=== PATIENT | female | born 1985 | race Caucasian/White ===

== ENCOUNTER 2018-09-27 23:15 | Emergency (ER) | payer SELFPAY ==
[2018-09-27] MEDS ORDERED: Diazepam 5 MG TAB ONE (23:54)
[2018-09-27] MEDS ORDERED: Ketorolac Tromethamine 30 MG/ML VIAL ONE (23:55)
[2018-09-27] MEDS ORDERED: Acetaminophen 500 MG TAB ONE (23:55)
--- NOTE | 2018-09-28 09:16 | RAD ---
LUMBAR SPINE 3 VIEWS: HISTORY: Back pain. FINDINGS: Lumbar vertebrae maintain normal height and alignment. Disk spaces are maintained. No evidence of s pondylolisthesis or spondylolysis. IMPRESSION: Unremarkable lumbar spine. POS: OFF
== END 2018-09-28 00:49 | disposition home or self-care (01) ==
LOC: ERS 23:15
DX: S39.012A Strain of muscle, fascia and tendon of lower back, initial encounter (principal); X50.9XXA Other and unspecified overexertion or strenuous movements or postures, initial encounter
CPT/HCPCS: 72100; 96372; J1885

== ENCOUNTER 2019-01-19 13:35 | Outpatient (CLI) | payer OTHER ==
--- NOTE | 2019-01-19 14:33 | MRI ---
MRI lumbar spine: 01/19/2019 COMPARISON: None HISTORY: Lower right-sided back pain with right lower extremity radiculopathy TECHNIQUE: Multiplanar multisequence MR imaging of the lumbar spine without contrast FINDINGS: On the basis of 5 lumbar type vertebral bodies, the conus medullaris terminates at the T12- L1 level. The sagittal STIR imaging demonstrates no focal area of osseous marrow edema. T12-L1: No central canal or neural foraminal stenosis L1-2: No central canal or neural foraminal stenosis L2-3: No central canal or neural foraminal stenosis L3-4: No central canal or neural foraminal stenosis L4-5: Mild bilateral facet hypertrophy. Disc desiccation noted. No significant central canal or neura l foraminal stenosis. L5-S1: No central canal or neural foraminal stenosis. The visualized retroperitoneal structures demonstrate no acute findings. IMPRESSION: No significant central canal or neural foraminal stenosis within the lumbar spine.
== END 2019-01-19 13:36 | disposition home or self-care (01) ==
LOC: BICMRI 13:35
PROVIDERS: ATTEND Family Medicine
DX: S39.012D Strain of muscle, fascia and tendon of lower back, subsequent encounter (principal)
CPT/HCPCS: 72148

== ENCOUNTER 2020-02-24 07:55 | Outpatient (CLI) | payer OTHER ==
[2020-02-24 15:55] LABS: BHCG - Serum Negative (NEGATIVE); Pregs Control Background? CLEAR/WHITE (CLR/WHITE); Pregs Control Bar Appear? YES (CONTROL BAR)
[2020-02-24 15:56] LABS: Hemoglobin 13.9 g/dL (12.0-16.0); Mean Corpuscular HGB CONC 33.6 g/dL (32.0-36.0); Mean Corpuscular Volume 89.2 fL (78.0-98.0); Mean Platelet Volume 7.4 fL (7.4-10.4); Platelet Count 366 thou/uL (130-400); RBC Distribution Width 11.5 % (11.5-14.5); Red Blood Cell (RBC) Count 4.63 mill/uL (4.20-5.40); White Blood Cell (WBC) Count 9.1 thou/uL (4.8-10.8)
[2020-02-25 12:49] LABS: SARS-CoV-2 MS2 Positive; SARS-CoV-2 N Gene Negative; SARS-CoV-2 S Gene Negative; SARS-CoV-2 by NAA Not Detected (NotDetected); SARS-CoV-2 orf1ab Negative
== END 2020-02-24 07:56 | disposition home or self-care (01) ==
LOC: LABBT 07:55
PROVIDERS: ATTEND Obstetrics & Gynecology
DX: Z01.812 Encounter for preprocedural laboratory examination (principal); N92.1 Excessive and frequent menstruation with irregular cycle; N94.6 Dysmenorrhea, unspecified; Z20.828 Contact with and (suspected) exposure to other viral communicable diseases
CPT/HCPCS: 84703; 85027; 86850; 86900; 86901; 87635; U0003

== ENCOUNTER 2020-02-29 07:56 | Day surgery (SDC) | payer OTHER ==
[2020-02-25 15:20] VITALS: BMI 37.4
--- NOTE | 2020-02-26 15:24 | HP ---
HISTORY OF PRESENT ILLNESS: Ms. Schneider is a 34-year-old white female G3, P3, with previous tubal ligation, is having increasingly heavy and painful periods over the last several years. She has tried nonsteroidals such as ibuprofen and also has tried some Lysteda with minimal improvement of her symptoms. She also has migraines, which exacerbate when she is on her menstrual cycle. She underwent a pelvic ultrasound for the heavy bleeding in my office in January 2020 showing the uterus appeared normal with 8.8 x 5 x 5 cm with the endometrial lining of 13 mm. Both ovaries were normal in appearance. She also has irregular bleeding at times every 2 weeks and prolonged for 8 to 10 days and therefore endometrial biopsy was obtained, which showed weakly proliferative findings and was benign for malignancy or hyperplasia. Her Pap smear and HPV were also negative. She has exhausted routine medical therapy and desires definitive surgical therapy. Past surgical therapy was removal of a neck cyst along with a tubal ligation in 2007. PAST MEDICAL HISTORY: Migraine and chronic hypertension. FAMILY HISTORY: Noncontributory. CURRENT MEDICATIONS: 1. Spironolactone 50 mg daily. 2. Bisoprolol/hydrochlorothiazide 2.5/6.25 mg daily for hypertension. 3. She uses Nurtec ODT 75 mg oral disintegrating tablet as needed for migraines. PHYSICAL EXAMINATION: VITAL SIGNS: Her height is 5 feet and 1 inch, weight is 202 with a BMI of 38. Blood pressure 126/70, pulse 86, respiratory rate 18, and O2 saturation 97% on room air. HEENT: Within normal limits. CHEST: Clear to auscultation. HEART: Regular rate and rhythm. S1 and S2 heart sounds. No murmurs, rubs, or gallops. ABDOMEN: Soft, nontender, and nondistended with no palpable masses. PELVIC: Vulva and vagina had no lesions. Cervix had no lesions. Uterus was small and nontender and it sounded to 7 cm on . Adnexa nontender with no masses. ASSESSMENT: This is a 34-year-old white female G3, P3 with tubal ligation with continued menometrorrhagia and severe dysmenorrhea and pelvic pain. Desires definitive surgical therapy. PLAN: For robotic TLH with bilateral salpingectomy on 02/29/2020. Risks and benefits of procedure have been discussed in detail, she is set for surgery. Job ID: [id number]
[2020-02-29] MEDS ORDERED: Bupivacaine HCl 0.5%/Epinephrine 1:200,000/PF 30 ml Vial ONE (09:47)
[2020-02-29] MEDS ORDERED: Fentanyl 250 MCG/5 ML VIAL ONE (09:48)
[2020-02-29] MEDS ORDERED: Gabapentin 300 MG CAP ONE (10:02)
[2020-02-29] MEDS ORDERED: Famotidine 20 MG TAB ONE ×2 (10:03→10:10)
[2020-02-29] MEDS ORDERED: CeleCOXIB 100 MG CAP ONE (10:04)
[2020-02-29] MEDS ORDERED: Albuterol Sulfate HFA (OR ONLY) ONE ×2 (10:52→13:19)
[2020-02-29] MEDS ORDERED: traMADol HCl 50 MG TAB PO PRN ×2 (11:47)
[2020-02-29] MEDS ORDERED: Promethazine HCl 25 MG/ML VIAL IM PRN ×2 (11:47→11:50)
[2020-02-29] MEDS ORDERED: Ondansetron PF 4 MG/2 ML Vial IVP PRN (11:47)
[2020-02-29] MEDS ORDERED: Acetaminophen 325 MG TAB PO PRN (11:47)
[2020-02-29] MEDS ORDERED: Zolpidem Tartrate 5 MG TAB PO PRN (11:47)
[2020-02-29] MEDS ORDERED: diphenhydrAMINE 25 MG CAP PO PRN (11:47)
[2020-02-29] MEDS ORDERED: Bisacodyl 10 MG SUPP PR PRN (11:47)
[2020-02-29] MEDS ORDERED: Simethicone Chewable 80 MG TAB PO PRN (11:47)
[2020-02-29] MEDS ORDERED: Morphine 4 MG/ML VIAL SLOW IVP PRN (11:47)
[2020-02-29] MEDS ORDERED: Ondansetron HCl/PF 4 MG/2 ML Vial IVP PRN (11:50)
[2020-02-29] MEDS ORDERED: Meperidine HCl/PF 25 MG/ML VIAL SLOW IVP PRN (11:50)
[2020-02-29] MEDS ORDERED: Promethazine HCl 25 MG/ML VIAL SLOW IVP PRN (11:50)
[2020-02-29] MEDS ORDERED: Ketorolac Tromethamine 30 MG/ML VIAL IVP SCH (12:00)
[2020-02-29] MEDS ORDERED: SUGAMMADEX SODIUM 200 MG/2 ML VIAL ONE (12:13)
[2020-02-29] MEDS ORDERED: Fentanyl 100 MCG/2 ML VIAL ONE (12:33)
--- NOTE | 2020-02-29 12:51 | OP ---
DATE OF PROCEDURE: 02/29/2020 PREOPERATIVE DIAGNOSES: 1. A 34-year-old white female, G2, P2, prior tubal ligation with severe dysmenorrhea and menorrhagia, unresponsive to medical management. 2. Suspect adenomyosis. POSTOPERATIVE DIAGNOSES: 1. A 34-year-old white female, G2, P2, prior tubal ligation with severe dysmenorrhea and menorrhagia, unresponsive to medical management. 2. Suspect adenomyosis. PROCEDURES PERFORMED: Robotic total laparoscopic hysterectomy, bilateral salpingectomy. ASSISTANCE SURGEON: BEST Gonzalez. ANESTHESIA: General endotracheal. ESTIMATED BLOOD LOSS: 25 mL. COMPLICATIONS: None. COUNTS: Correct x2. ANTIBIOTICS: 2 g Ancef on-call to OR with ERAS protocol. PATHOLOGY: Uterus, cervix, and bilateral tubes. FINDINGS: 1. Normal-appearing bilateral ovaries. 2. Fallopian tubes status post Filshie clip application. 3. Globularly enlarged boggy uterus, consistent with adenomyosis. 4. Clear urine present in Nogueira catheter postprocedure and bladder was watertight to water distention greater than 300 mL postprocedure. DISPOSITION: Recovery room, stable. DESCRIPTION OF PROCEDURE: The patient was taken back to the operating room after she had given informed consent in regard to surgery. She was taken back and placed in a dorsal lithotomy position after anesthesia was induced. She was prepped and draped in usual sterile fashion and Nogueira catheter had been placed. At this time, a side-arm speculum was placed in the vagina. Anterior lip of the cervix was grasped with single-tooth tenaculum. The uterus sounded to 9 cm and a size 8 cm TIMOTHY uterine manipulator with a 4.0 cm cervical cup was placed in usual fashion. Tenaculum and speculum were then removed. Attention was then turned to the abdomen, where perspective trocar sites were infiltrated with 0.5% Marcaine with epinephrine. A 12 mm supraumbilical incision was made. Veress needle was entered into the abdomen with the patient pressure noted to be less than 5 mm. Abdomen was insufflated for the patient pressure of 15 with approximately 5 L of carbon dioxide gas. Veress needle was then removed. A 12 mm trocar was then placed through the umbilical incision and laparoscope was introduced through the trocar sleeve. Proper entry was confirmed. Additional bilateral lower quadrant 8 mm trocars under laparoscopic guidance were placed along with the right upper quadrant 11 mm benefits assistant port. The patient was placed in Trendelenburg and the robot was docked in usual fashion. I broke scrub and then proceeded to carry out the surgery from the operative console while my benefits assistant remained at the bedside. The uterus was elevated from the pelvis with the previously mentioned findings. Each fallopian tube was identified. The left fallopian tube was grasped by my benefits assistant. Bipolar fenestrated cautery was utilized to coagulate the mesosalpinx and monopolar scissors were used to remove the left fallopian tube. This was brought up through the right upper quadrant benefits assistant port. The left utero-ovarian ligaments were then coagulated, transected, and serial coagulation of broad ligament hugging close to the uterus was carried out until the left round ligament was reached. It was coagulated and transected and the anterior leaf of the broad ligament was entered, dissecting the vesicouterine peritoneum in a layering technique. The left uterine vessels were then skeletonized. They were coagulated in the internal cervical os region with bipolar fenestrated cautery. This was carried out in similar fashion on the right side. Again, the right fallopian tube being coagulating and removed. The right utero-ovarian ligament being coagulated and transected, and serial coagulation of the broad ligament was carried out with transection down to the right round ligament, which was coagulated and transected. Anterior leaf of the broad ligament was again entered and the vesicouterine peritoneal dissection was completed. The uterine vessels were skeletonized and coagulated in the internal cervical os region. The bladder was distended to confirm its presence and further skeletonization of the cervical stump was carried out. The anterior colpotomy was then started and completed from 12 to 3 and 12 to 6 o'clock position, completing it from the 6 to 9 and 6 to 3 o'clock position. The specimen was then brought into the vaginal vault. Monopolar scissor was exchanged for a Sam needle mixer driver, then coagulated the vaginal cuff of any areas of bleeding with bipolar fenestrated cautery. Once this was secured, the Stratafix suture was brought into the field by my benefits assistant and I closed the vaginal cuff starting from the right angle towards the left angle back towards the midline through full-thickness closure of the vaginal cuff. Hemostasis was noted. The pelvis again was irrigated and suctioned. All the pedicle sites were noted to be hemostatic. The bladder was draining clear urine and the bladder was distended and noted to be watertight. Bilateral ureteral peristalsis was visualized and path of the ureters appeared to be inferior to the operative sites. The robot was undocked. Trocars were removed. The deep stitch of 0 Vicryl was placed in the umbilical fascial defect in [id number] stitch fashion. Remainder of the trocar sites were closed with 4-0 Monocryl with Dermabond. The vaginal cuff was inspected and noted to be hemostatic with the sponge stick. The patient was awakened from anesthesia and transferred to recovery room in stable condition. Job ID: [id number]
[2020-02-29] MEDS ORDERED: Promethazine HCl 25 MG/ML VIAL ONE (13:06)
[2020-02-29] MEDS ORDERED: Lidocaine 1% PF 5 ML VIAL ONE (13:19)
[2020-02-29] MEDS ORDERED: Ondansetron PF 4 MG/2 ML Vial ONE (13:19)
[2020-02-29] MEDS ORDERED: Rocuronium Bromide 10 MG/ML (10ML VIAL) ONE (13:19)
[2020-02-29] MEDS ORDERED: PROPOFOL 200 MG/20 ML VIAL ONE (13:19)
[2020-02-29] MEDS ORDERED: Glycopyrrolate 0.2 MG/ML 5 ML SYRINGE ONE (13:19)
[2020-02-29] MEDS ORDERED: Dexamethasone 20 MG/5 ML VIAL ONE (13:19)
[2020-02-29] MEDS: Lactated Ringer's 1,000 ML IV SCH ×2 (14:31→17:39)
[2020-02-29] MEDS ORDERED: Sodium Chloride 0.9% 10 ML ONE (16:40)
[2020-02-29] MEDS: Ketorolac Tromethamine 30 MG/ML VIAL IVP SCH (21:30)
[2020-03-01] MEDS: Ketorolac Tromethamine 30 MG/ML VIAL IVP SCH (04:03)
[2020-03-01] MEDS: Lactated Ringer's 1,000 ML IV SCH (04:11)
[2020-03-01 06:07] LABS: Hemoglobin 11.3 g/dL (12.0-16.0); Mean Corpuscular HGB CONC 34.1 g/dL (32.0-36.0); Mean Corpuscular Hemoglobin 30.3 pg (27.0-31.0); Mean Corpuscular Volume 88.9 fL (78.0-98.0); Mean Platelet Volume 7.1 fL (7.4-10.4); Platelet Count 340 thou/uL (130-400); RBC Distribution Width 11.3 % (11.5-14.5); Red Blood Cell (RBC) Count 3.72 mill/uL (4.20-5.40)
[2020-03-01 08:11] VITALS: BP 117/71; TEMP 98.2
[2020-03-05] MEDS ORDERED: Ibuprofen 800 MG TAB PO SCH (21:00)
== END 2020-03-01 09:10 | disposition home or self-care (01) ==
LOC: SDC 07:56 → 3SE 15:33 → SDC 03-01 09:10
PROVIDERS: ATTEND Obstetrics & Gynecology
PROC: 0UT74ZZ Resection of Bilateral Fallopian Tubes, Percutaneous Endoscopic Approach (ICD-10-PCS; principal; 2020-02-29)
PROC: 0UT94ZZ Resection of Uterus, Percutaneous Endoscopic Approach (ICD-10-PCS; principal; 2020-02-29)
DX: D25.2 Subserosal leiomyoma of uterus (principal); I10 Essential (primary) hypertension; G43.909 Migraine, unspecified, not intractable, without status migrainosus; Z79.899 Other long term (current) drug therapy; Z88.5 Allergy status to narcotic agent
CPT/HCPCS: 36415; 85027; 88307; J0690; J1100; J1885; J2270; J2405; J2550; J2704; J3010

== ENCOUNTER 2020-03-14 18:58 | Observation (INO) | payer OTHER ==
[~2020-03-14 18:58] MED LIST: Iopamidol-370 76% 500 ML 1 ML ONE
[2020-03-14] MEDS ORDERED: Morphine 4 MG/ML VIAL ONE (19:20)
[2020-03-14] MEDS ORDERED: Lorazepam 2 MG/ML VIAL ONE (19:20)
[2020-03-14 19:31] LABS: Mean Corpuscular HGB CONC 34.3 g/dL (32.0-36.0); Mean Corpuscular Hemoglobin 30.8 pg (27.0-31.0); Mean Corpuscular Volume 89.7 fL (78.0-98.0); Mean Platelet Volume 6.6 fL (7.4-10.4); Platelet Count 525 thou/uL (130-400); RBC Distribution Width 11.1 % (11.5-14.5); Red Blood Cell (RBC) Count 4.54 mill/uL (4.20-5.40); White Blood Cell (WBC) Count 16.8 thou/uL (4.8-10.8)
[2020-03-14 19:46] LABS: BHCG - Serum Negative (NEGATIVE); Pregs Control Background? CLEAR/WHITE (CLR/WHITE); Pregs Control Bar Appear? YES (CONTROL BAR)
[2020-03-14 19:50] LABS: ALT (SGPT) 49 U/L (8-55); AST (SGOT) 39 U/L (5-34); Albumin 4.7 g/dL (3.5-5.0); Alkaline Phosphatase 105 U/L (40-110); Anion Gap 18 mmol/L (10-20); BUN (Urea Nitrogen) 10 mg/dL (7.0-18.7); Bilirubin, Total 0.2 mg/dL (0.2-1.2); Calc. Creatinine Clearance 0 mL/min (70-130); Calcium 9.5 mg/dL (7.8-10.44); Carbon Dioxide 23 mmol/L (22-29); Chloride 103 mmol/L (98-107); Estimated GFR-MDRD 84; Globulin 4.3 g/dL (2.4-3.5); Glucose 97 mg/dL (70-105); Potassium 3.5 mmol/L (3.5-5.1); Sodium 140 mmol/L (136-145)
[2020-03-14 19:53] LABS: Band 4 % (5-11); Eosinophils 1 % (0-10); Lymphocytes 44 % (21-51); MDiff Complete? YES; Monocytes 2 % (0-10); Neutrophil 49 % (42-75); Platelet Morphology Comment Appears Increased; RBC Morphology Normal
--- NOTE | 2020-03-14 20:44 | CT ---
CT of abdomen and pelvis: 03/14/2020 COMPARISON: None HISTORY: Heavy vaginal bleeding, abdominal pain, prior hysterectomy TECHNIQUE: Axial CT imaging at 5 mm intervals from the lung bases through the pubic symphysis with in travenous contrast. Coronal and sagittal reformatted imaging obtained. FINDINGS: The visualized lung bases appear unremarkable. No free intraperitoneal air is seen. The hepatic parenchyma is diffusely hypodense, evidence of steatosis. The gallbladder, spleen, and pa ncreas appear grossly unremarkable as do bilateral adrenal glands. There is a punctate nonobstructing stone in the lower pole of the right kidney and a punctate nonobstructing stone within the midpole of the left kidney. There is a small fat-containing umbilical hernia. Limited assessment of the bowel without contrast media demonstrates no evidence for inflammatory wallace ge or obstruction. The vascular structures of the abdomen/pelvis appear patent. The vagina is expanded and filled with material of heterogeneous density, especially involving the rosales perior aspect of the vagina in the region of the vaginal fornices where there is peripheral discontiguous areas of hyperdensity suggesting blood products. At the superior aspect of the postoper ative site/expanded vagina there are foci of gas posterior to the urinary bladder which could represent gas within the expanded post operative vagina or gas within the adjacent soft tissues. This area of complex abnormal density within the expanded vagina measures approximately 5.3 x 4.0 x 7.0 cm. The osseous structures demonstrate no worrisome lytic or blastic bone lesions. IMPRESSION: Material of heterogeneous density within the postoperative vagina suggesting blood produc ts. Infection cannot be excluded given evidence of gas along the superior margin of this abnormality. Follow-up imaging following treatment suggested.
[2020-03-14] MEDS ORDERED: Piperacillin/Tazobactam 3.375 GM VIAL ONE (21:10)
[2020-03-14] MEDS ORDERED: Lidocaine 1% (PF) 30 ML VIAL ONE (22:13)
[2020-03-14] MEDS ORDERED: Fentanyl 100 MCG/2 ML VIAL ONE ×2 (22:19→23:31)
[2020-03-14] MEDS ORDERED: Dexamethasone 20 MG/5 ML VIAL ONE (22:35)
[2020-03-14] MEDS ORDERED: Ondansetron PF 4 MG/2 ML Vial ONE (22:35)
[2020-03-14] MEDS ORDERED: Succinylcholine 200 MG/10 ml SYRINGE FS ONE (22:35)
[2020-03-14] MEDS ORDERED: PROPOFOL 200 MG/20 ML VIAL ONE (22:35)
[2020-03-15] MEDS ORDERED: Ondansetron PF 4 MG/2 ML Vial ONE (00:04)
[2020-03-15] MEDS ORDERED: Promethazine HCl 25 MG/ML VIAL ONE (00:05)
--- NOTE | 2020-03-15 00:50 | OP ---
DATE OF PROCEDURE: 03/14/2020 PREOPERATIVE DIAGNOSES: 34-year-old white female, two weeks post robotic hysterectomy with vaginal cuff dehiscence and vaginal bleeding. POSTOPERATIVE DIAGNOSES: 34-year-old white female, two weeks post robotic hysterectomy with vaginal cuff dehiscence and vaginal bleeding. PROCEDURES PERFORMED: 1. Exam under anesthesia. 2. Repair of vaginal cuff dehiscence in vaginal setting. PATIENT SERVICES COORDINATOR SURGEON: Zeus Fitzpatrick MD ANESTHESIA: General endotracheal. ESTIMATED BLOOD LOSS: From the procedure was 10 mL. FINDINGS: 1. Approximately 5 cm dehiscence noted of the vaginal cuff with a trailing Stratafix suture in the vaginal vault that was approximately 6 cm tail. 2. The vaginal cuff tissue was well vascularized with no necrotic tissue or excessive eschar seen. No purulent material or foul odor noted. 3. Post cuff closure hemostatic and also intact to digital exam. DISPOSITION: To recovery room and then plan for discharge home in approximately early a.m. DESCRIPTION OF PROCEDURE: The patient was taken back from the emergency room to the operating room, where she received a general endotracheal anesthetic agent. She was prepped and draped in usual sterile fashion after she was placed in dorsal lithotomy position. Nogueira catheter was placed. After she was prepped, an exam under anesthesia was performed with the previously mentioned findings. At this time, a weighted speculum was placed in the vagina and the cuff was grasped with Allis clamps. Then, I was able to get the angle of the right side and put a [id number]-[id number] suture of 0 Vicryl and tagged this at the angle. Then, I ran the cuff and closed it horizontally with interrupted [id number] sutures of #1 Vicryl. Ran this all the way to the left vaginal angle. The cuff was grasped with hemostats. After the sutures had been placed, I did digital exam and the cuff line was noted to be secure with no evidence of defects. Hemostasis was assured. The cuff again was copiously irrigated with saline. Hemostasis again noted to be present and then patient was awakened from anesthesia and transferred to recovery room in stable condition. Job ID: [id number]
[2020-03-15] MEDS ORDERED: traMADol HCl 50 MG TAB PO PRN (01:10)
[2020-03-15] MEDS ORDERED: diphenhydrAMINE 25 MG CAP PO PRN (01:10)
[2020-03-15] MEDS ORDERED: Ondansetron PF 4 MG/2 ML Vial IVP PRN (01:10)
[2020-03-15] MEDS ORDERED: Morphine 2 MG/ML VIAL SLOW IVP PRN (01:10)
[2020-03-15] MEDS ORDERED: Lactated Ringer's 1,000 ML IV SCH (01:10)
[2020-03-15] MEDS ORDERED: Acetaminophen 325 MG TAB PO PRN (01:10)
[2020-03-15] MEDS ORDERED: Sodium Chloride 0.9% 1,000 ML IV SCH (01:10)
[2020-03-15] MEDS: Ketorolac Tromethamine 30 MG/ML VIAL IVP SCH ×2 (03:14→07:30)
[2020-03-15 07:23] VITALS: BMI 32.8
[2020-03-15 08:01] VITALS: BP 91/50; TEMP 97.5
--- NOTE | 2020-03-16 11:37 | DIS ---
DATE OF ADMISSION: 03/15/2020 DATE OF DISCHARGE: 03/15/2020 HOSPITAL COURSE: The patient is a 34-year-old female, who presented to the emergency room with acute vaginal bleeding about 10 to 12 days out from a robotic hysterectomy and BS. Upon evaluation, the patient was noted to have dehiscence of her cuff and was taken to the operating room for exam under anesthesia and closure. For complete details, please refer to the operative note. The patient was given a dose of Zosyn in the ER. On time of exam, the cuff looks fresh and healthy and does not look infected. This morning, the patient is feeling much better. Bleeding has continued to be abated. Vital signs this morning; blood pressure is 110/67, pulse of 88, temperature 98.3, respiratory rate of 18, saturating 100% on room air. In general, she appears to be in no acute distress. She is alert, oriented, cooperative, and pleasant to interact with. Nogueira is in place. The patient is being discharged home today. She will have ibuprofen and Augmentin that have been sent to the pharmacy of her choice. She has instructions to follow up with her primary provider, Dr. Higgins in 1 week. She is to seek medical attention if she experiences fever, increasing pain, or bleeding. Job ID: [id number]
== END 2020-03-15 09:30 | disposition home or self-care (01) ==
LOC: ERS 18:58 → SDC/OP 22:43 → 3SW 23:00 → UNDOADMOB 23:00 → 3SW 03-15 01:18
PROVIDERS: ADMIT Obstetrics & Gynecology; ATTEND Obstetrics & Gynecology
PROC: 0UQG7ZZ Repair Vagina, Via Natural or Artificial Opening (ICD-10-PCS; principal; 2020-03-14)
DX: T81.32XA Disruption of internal operation (surgical) wound, not elsewhere classified, initial encounter (principal); N93.8 Other specified abnormal uterine and vaginal bleeding; R10.9 Unspecified abdominal pain; K21.9 Gastro-esophageal reflux disease without esophagitis; I10 Essential (primary) hypertension; G43.709 Chronic migraine without aura, not intractable, without status migrainosus; E66.9 Obesity, unspecified; Z68.32 Body mass index [BMI] 32.0-32.9, adult; Z79.899 Other long term (current) drug therapy; Z88.5 Allergy status to narcotic agent
CPT/HCPCS: 74177; 80053; 84703; 85025; 86850; 86900; 86901; 96365; 96375; J1100; J1885; J2001; J2060; J2270; J2405; J2543; J2550; J2704; J3010; Q9967

== ENCOUNTER 2020-09-16 23:07 | Emergency (ER) | payer OTHER ==
[2020-09-16] MEDS ORDERED: Ketorolac Tromethamine 30 MG/ML VIAL ONE (23:40)
== END 2020-09-17 00:24 | disposition home or self-care (01) ==
LOC: ERS 23:07
DX: M77.02 Medial epicondylitis, left elbow (principal); K21.9 Gastro-esophageal reflux disease without esophagitis; I10 Essential (primary) hypertension
CPT/HCPCS: 96372; J1885

== ENCOUNTER 2021-09-27 08:40 | Outpatient (CLI) | payer OTHER | END 2021-09-27 08:41 | disposition home or self-care (01) | LOC: BICULT 08:40 | PROVIDERS: ATTEND Internal Medicine Gastroenterology | DX: R10.13 Epigastric pain (principal); R16.0 Hepatomegaly, not elsewhere classified; N20.0 Calculus of kidney; K76.0 Fatty (change of) liver, not elsewhere classified | CPT/HCPCS: 76705 ==